=== PATIENT | male | born 1940 | race Caucasian/White ===

== ENCOUNTER → 2017-02-13 | Outpatient (CLI) | payer MEDICARE ==
[~2017-02-13] MED LIST: REGADENOSON 0.4 MG/5 ML SYRINGE ONE
== END | disposition home or self-care (01) ==
LOC: CFH 06:49
PROVIDERS: ATTEND Internal Medicine Cardiovascular Disease
DX: I25.10 Atherosclerotic heart disease of native coronary artery without angina pectoris (principal); I10 Essential (primary) hypertension; E11.9 Type 2 diabetes mellitus without complications; I44.7 Left bundle-branch block, unspecified; Z95.5 Presence of coronary angioplasty implant and graft
CPT/HCPCS: 78452; 93017; 93306; A9502; J2785

== ENCOUNTER 2017-06-04 14:17 | Emergency (ER) | payer MEDICARE ==
[~2017-06-04] VITALS: Ht 177.8 cm; Wt 91.8 kg
[2017-06-04 14:19] VITALS: BP 170/78
[2017-06-04] MEDS ORDERED: METHOCARBAMOL 750 MG TABLET ONE (14:52)
[2017-06-04] MEDS ORDERED: HYDROcodone/APAP 5/325 TABLET ONE (14:52)
[2017-06-04] MEDS ORDERED: ONDANSETRON ODT 4 MG ONE (14:52)
[2017-06-04] MEDS ORDERED: METHOCARBAMOL 750 MG TABLET PO ONE (15:00)
[2017-06-04] MEDS ORDERED: HYDROcodone/APAP 5/325 TABLET PO ONE (15:00)
[2017-06-04] MEDS ORDERED: ONDANSETRON ODT 4 MG PO ONE (15:00)
[2017-06-04] MEDS ORDERED: EMPA10TA PO (15:11)
[2017-06-04] MEDS ORDERED: GLIM2TAB2 PO (15:11)
[2017-06-04] MEDS ORDERED: LEVO100T PO (15:11)
[2017-06-04] MEDS ORDERED: GABA300C10 PO (15:11)
[2017-06-04] MEDS ORDERED: CHOL2000 PO (15:11)
[2017-06-04] MEDS ORDERED: CARV12.543 PO (15:11)
[2017-06-04] MEDS ORDERED: METF100010 PO (15:11)
[2017-06-04] MEDS ORDERED: RAMI5CAP PO (15:11)
[2017-06-04] MEDS ORDERED: AMLO10TA2 PO (15:11)
[2017-06-04] MEDS ORDERED: CYAN2500 PO (15:11)
[2017-06-04] MEDS ORDERED: FURO20TA3 PO (15:11)
[2017-06-04] MEDS ORDERED: ASPI-496 PO (15:11)
[2017-06-04] MEDS ORDERED: ESOM20CA PO (15:11)
== END 2017-06-04 16:12 | disposition other institution (70) ==
LOC: ED 15:24
DX: M54.31 Sciatica, right side (principal); R20.0 Anesthesia of skin; K21.9 Gastro-esophageal reflux disease without esophagitis; E78.5 Hyperlipidemia, unspecified
CPT/HCPCS: 72110; 73502; 99285; J7512; Q0162

== ENCOUNTER 2017-06-07 09:31 | Emergency (ER) | payer MEDICARE ==
[~2017-06-07] VITALS: Ht 177.8 cm; Wt 90.9 kg
[~2017-06-07 09:31] MED LIST changes: +AMLO10TA2 PO; +ASPI-496 PO; +CARV12.543 PO; +CHOL2000 PO; +CYAN2500 PO; +EMPA10TA PO; +ESOM20CA PO; +FURO20TA3 PO; +GABA300C10 PO; +GLIM2TAB2 PO; +LEVO100T PO; +METF100010 PO; +RAMI5CAP PO; -REGADENOSON 0.4 MG/5 ML SYRINGE ONE
[2017-06-07] MEDS ORDERED: SODIUM CHLORIDE FLUSH 10ML SYR IVF ONE (10:00)
[2017-06-07] MEDS ORDERED: ONDANSETRON 2MG/ML, 2ML IVPush ONE (10:00)
[2017-06-07] MEDS ORDERED: MORPHINE SULFATE 4 MG/ML, 1ML IVPush PRN (10:00)
[2017-06-07] MEDS ORDERED: HYDROmorphone 1 MG/ML, 1ML ONE (11:10)
[2017-06-07] MEDS ORDERED: ONDANSETRON 2MG/ML, 2ML ONE (11:10)
[2017-06-07] MEDS: HYDROmorphone 2 MG/ML, 1ML IVPush PRN ×2 (11:23→11:56)
[2017-06-07 12:58] VITALS: BP 138/72
== END 2017-06-07 13:00 | disposition home or self-care (01) ==
LOC: ED 10:48
DX: M54.41 Lumbago with sciatica, right side (principal); K21.9 Gastro-esophageal reflux disease without esophagitis; E11.9 Type 2 diabetes mellitus without complications; I10 Essential (primary) hypertension; E78.5 Hyperlipidemia, unspecified; Z95.5 Presence of coronary angioplasty implant and graft
CPT/HCPCS: 72148; 96374; 96375; 96376; 99284; J1170; J2405

== ENCOUNTER → 2018-01-02 | Outpatient (CLI) | payer MEDICARE | END | disposition home or self-care (01) | LOC: CVU 15:33 → EDSTATUS 16:00 | PROVIDERS: ATTEND Internal Medicine Cardiovascular Disease | DX: I08.0 Rheumatic disorders of both mitral and aortic valves (principal); I25.10 Atherosclerotic heart disease of native coronary artery without angina pectoris; E11.9 Type 2 diabetes mellitus without complications; C61 Malignant neoplasm of prostate; I10 Essential (primary) hypertension; Z95.5 Presence of coronary angioplasty implant and graft | CPT/HCPCS: 93306 ==

== ENCOUNTER 2018-01-12 07:54 | Day surgery (SDC) | payer MEDICARE ==
[~2018-01-12] VITALS: Ht 177.8 cm; Wt 87.7 kg
[2018-01-12] MEDS ORDERED: LIRA0.6P2 SQ (08:50)
[2018-01-12 08:55] LABS: BASOPHILS # (AUTO) 0.03 x10^3/uL (0-0.1); BASOPHILS % (AUTO) 1 % (0-1); EOSINOPHILS # (AUTO) 0.16 x10^3/uL (0-0.4); EOSINOPHILS % (AUTO) 3 % (1-7); LYMPHOCYTES # (AUTO) 2.08 x10^3/uL (1-3.4); LYMPHOCYTES % (AUTO) 33 % (22-44); MD NO; MEAN CORPUSCULAR HEMOGLOBIN 32.3 pg (27.5-34.5); MEAN CORPUSCULAR HGB CONC 33.5 g/dL (33.2-36.2); MEAN CORPUSCULAR VOLUME 96.4 fL (81-97); MEAN PLATELET VOLUME 8.6 fL (7.4-10.4); MONOCYTES # (AUTO) 0.71 x10^3/uL (0.2-0.8); MONOCYTES % (AUTO) 11 % (2-9); NEUTROPHILS # (AUTO) 3.35 x10^3/uL (1.8-6.8); NEUTROPHILS % (AUTO) 53 % (42-75); PLATELET COUNT 197 x10^3/uL (130-400); RED BLOOD COUNT 4.88 x10^6/uL (4.38-5.82); RED CELL DISTRIBUTION WIDTH 13.7 % (9.4-14.8)
[2018-01-12 09:00] LABS: ANION GAP 9 mmol/L (5-15); CALCIUM 8.4 mg/dL (8.5-10.1); CHLORIDE 110 mmol/L (98-107)
[2018-01-12] MEDS ORDERED: SODIUM CHLORIDE 0.9% 1,000 ML IV ONE (09:00)
[2018-01-12 09:01] LABS: CREATININE 1.05 mg/dL (0.7-1.3)
[2018-01-12] MEDS ORDERED: MIDAZOLAM 1 MG/ML, 2ML ONE (11:22)
[2018-01-12] MEDS ORDERED: FENTANYL PF 100 MCG/2ML ONE (11:23)
[2018-01-12] MEDS ORDERED: DIPHENHYDRAMINE 50 MG/ML, 1ML ONE (11:23)
[2018-01-12] MEDS ORDERED: LIDOCAINE-MPF 2% ,5ML ONE (11:23)
[2018-01-12] MEDS ORDERED: VERAPAMIL 2.5 MG/ML, 2ML ONE (11:37)
[2018-01-12] MEDS ORDERED: HEPARIN 1,000 UNITS/ML, 10ML ONE (11:45)
[2018-01-12] MEDS ORDERED: SODIUM CHLORIDE 0.9% 1,000 ML IV SCH (12:08)
== END 2018-01-12 15:00 | disposition home or self-care (01) ==
LOC: CACL 07:54
PROVIDERS: ATTEND Internal Medicine Cardiovascular Disease
DX: I25.110 Atherosclerotic heart disease of native coronary artery with unstable angina pectoris (principal); I10 Essential (primary) hypertension; E78.5 Hyperlipidemia, unspecified; E11.9 Type 2 diabetes mellitus without complications; I35.1 Nonrheumatic aortic (valve) insufficiency; E87.6 Hypokalemia
CPT/HCPCS: 36415; 80048; 85025; 93458; 99156; C1894; J1200; J1644; J2250; J3010; J3490; J7030; Q9967

== ENCOUNTER → 2021-05-04 | Outpatient (CLI) | payer MEDICARE ==
[~2021-05-04] MED LIST changes: +AMLO-211 PO; -AMLO10TA2 PO; -GLIM2TAB2 PO; +GLIM2TAB7 PO; +LIRA0.6P2 SQ; -RAMI5CAP PO; +RAMI5CAP57 PO
[2021-05-04 16:20] LABS: ANION GAP 4 mmol/L (5-15); CALCIUM 9.3 mg/dL (8.5-10.1); CHLORIDE 107 mmol/L (98-107); CREATININE 1.33 mg/dL (0.7-1.3)
== END | disposition home or self-care (01) ==
LOC: STAR 15:15
PROVIDERS: ATTEND Ophthalmology
DX: Z01.818 Encounter for other preprocedural examination (principal); Z01.89 Encounter for other specified special examinations; R79.1 Abnormal coagulation profile; I44.7 Left bundle-branch block, unspecified
CPT/HCPCS: 36415; 80048; 93005